=== PATIENT | female | born 1960 | race Caucasian/White ===

== ENCOUNTER 2021-11-27 17:34 | Emergency (ER) | payer BC, OTHER ==
[~2021-11-27] VITALS: Ht 167.6 cm; Wt 64.0 kg
[~2021-11-27 17:34] MED LIST: LISINOPRIL; NAPR500T7; TAP5
[2021-11-27 18:05] VITALS: BP 148/95
[2021-11-27 18:05] LABS: BASOPHILS % 0.5 % (0.0-2.0); EOSINOPHILS % 0.9 % (0.0-5.0); HEMATOCRIT. 39.6 % (36.0-48.0); HEMOGLOBIN. 13.6 g/dL (12.0-16.0); LYMPHOCYTES % 13.2 % (20.0-50.0); MEAN CORPUSCULAR HEMOGLOBIN 30.3 pg (28.0-32.0); MEAN PLATELET VOLUME 9.3 fl (7.4-10.4); NEUTROPHILS % 79.4 % (40.0-76.0); PLATELET 218 x1000/uL (130-400); RED CELL DISTRIBUTION WIDTH 13.5 % (11.6-14.6)
[2021-11-27 18:16] LABS: CHLORIDE 105 mEq/L (98-107)
== END 2021-11-27 19:03 | disposition home or self-care (01) ==
LOC: ER 17:34
DX: R07.89 Other chest pain (principal); I10 Essential (primary) hypertension; Z86.39 Personal history of other endocrine, nutritional and metabolic disease
CPT/HCPCS: 36415; 71045; 80053; 83880; 84484; 85025; 93005; 99285